=== PATIENT | male | born 1975 | race Caucasian/White ===

== ENCOUNTER 2022-07-17 12:56 | Observation (INO) ==
--- NOTE | 2022-07-17 13:38 | Emergency Department Note ---
Impression & Plan Afib, Chest pain ED Provider Note NAME: ROBEL BELLE AGE: 47 SEX: M : 1975 ARRIVES VIA: Walk-In INFORMANT: Patient ED PROVIDER(S): Wagner Diaz DO CHIEF COMPLAINT: Afib HPI: Patient is a 47-year-old male who had previous gastric bypass and previous diabetic which has now resolved with gastric bypass who had surgery at [facility]. They note he flipped into A. fib during the surgery. He is rate controlled. He was only given propofol. He denies any headache or change in vision. He feels a little groggy from the anesthesia. No chest pain or shortness of breath. No belly pain, nausea, vomiting, or diarrhea. No dysuria, urgency, or frequency. No other exacerbating or remitting factors. He notes he is very active. No heart disease. ROS: See above HPI for pertinent positives & negatives. A total of 10 systems reviewed and were otherwise negative. PAST MEDICAL HISTORY:See Below PAST SURGICAL HISTORY:See Below FAMILY HISTORY:See Below SOCIAL HISTORY:See Below HOME MEDICATIONS:See Below ALLERGIES:See Below VITALS:See Below PHYSICAL EXAMINATION: GENERAL: Sitting up in bed, alert, well appearing, well nourished, no distress, non-toxic EYE EXAM: normal conjunctiva. OROPHARYNX: no exudate, no erythema, lips, buccal mucosa, and tongue normal and mucous membranes are moist NECK: supple, no nuchal rigidity, no adenopathy, non-tender LUNGS: Clear to auscultation. Normal chest wall mechanics HEART: Irregular regular, S1 normal and S2 normal ABDOMEN: abdomen soft, non-tender, normo-active bowel sounds, no masses, no rebound or guarding. BACK: Back is symmetrical on inspection and there is no deformity, no midline tenderness, no CVA tenderness. SKIN: no rashes and no bruising UPPER EXTREMITIES: upper extremities are grossly normal. LOWER EXTREMITIES: No pitting edema. NEURO EXAM: Normal sensorium, cranial nerves II-XII grossly intact, normal speech, no gross weakness of arms, no gross weakness of legs. MEDICAL DECISION MAKING: Patient is a 47-year-old male referred in by [facility] following having right. IV was established blood work was obtained. He was found to be in A. fib. Labs show no significant leukocytosis or anemia. BMP along with LFTs bilirubin and lipase was unremarkable. Troponin was negative. Chest x-ray and EKG were remarkable for A. fib. Contacted Dr. Braeden Dean and just at this time patient started having chest pain. As he was having chest pain we gave him aspirin nitro and repeat the EKG. As he is having chest pain with new onset A. fib did discuss with the hospitalist for further evaluation and admission. Discussed with Dr. Pearson for further evaluation. Triage Nursing notes reviewed. Limited review of prior medical records performed Vital Signs: reviewed and remarkable for no significant abnormalities Differential diagnosis: Cardiac ischemia, aortic dissection, pulmonary embolism, pneumothorax, pneumonia, pericarditis, myocarditis, esophageal rupture, GERD, cholecystitis, pancreatitis, musculoskeletal, as well as other pathologies. ER treatment provided: See below Diagnostics interpreted by me: ECG: A. fib rate of 45 Normal axis No PVCs QTC 344 EKG #2 atrial flutter with a variable block rate of 46 No PVCs QTC 353 Cardiac Monitoring: An order was placed for continuous cardiac monitoring. The monitor shows a rate of 52 with sinus rhythm. Laboratory studies: As stated above and show below. Imaging studies: Chest x-ray unremarkable Consultation(s): As described above Procedures: none Critical Care: None Past Med/Surg History Social History Smoking Status: Never smoker Feels Safe at Home: Yes Allergies Allergies Allergy/AdvReac Type Severity Reaction Status Date / Time No Known Allergies Allergy Unverified 07/17/22 15:26 Home Meds Home Medications Medication Instructions Recorded Confirmed No Known Home Medications 07/17/22 07/17/22 Results & Data (ED) Vital Signs Vital Signs - 24 hr 07/17/22 12:58 07/17/22 13:25 07/17/22 14:56 Temperature 36.5 C Temperature Source Temporal Artery Scan Pulse Rate 56 L Pulse Rate [Apical] 54 L Pulse Rhythm [Apical] Irregular Pulse Strength [Apical] Normal Respiratory Rate 20 19 Respiratory Effort / Characteristics Non-Labored Spontaneous Non-Labored Respiratory Depth Normal Normal Respiratory Pattern Regular Regular Blood Pressure 123/85 Blood Pressure [Left Arm] 106/82 Blood Pressure Mean 97 Blood Pressure Mean [Left Arm] 90 Blood Pressure Position Sitting Blood Pressure Position [Left Arm] Lying Pulse Oximetry 100 99 98 Oxygen Delivery Method Room Air Room Air Room Air Sepsis Recent Fever Within 48 Hours No Sepsis New/Unexplained Change in Mental Status N/A Sepsis Action Taken by Nursing No Action Required Laboratory Data Result diagrams: 07/17/22 13:25 07/17/22 13:25 Lab Results 07/17/22 07/17/22 07/17/22 Range/Units 13:25 13:25 13:25 WBC 7.08 (4.8-10.8) K/ul RBC 4.83 (4.63-6.08) M/uL Hgb 14.6 (14.0-18.0) g/dl Hct 43.9 (40.1-51.0) % MCV 90.9 (80.0-100.0) fL MCH 30.2 (25.0-34.0) pg MCHC 33.3 (32.0-36.0) g/dL RDW Std Deviation 40.7 (36.4-46.3) fL RDW Coeff of Jorge 12.4 (11.5-14.5) % Plt Count 289 (130-400) K/uL MPV 9.9 (9.4-12.4) fL Immature Gran % (Auto) 0.1 % Neut % (Auto) 48.3 % Lymph % (Auto) 43.5 % Keith % (Auto) 6.2 % Eos % (Auto) 1.1 % Baso % (Auto) 0.8 % Neut # (Auto) 3.41 (1.4-6.5) K/uL Lymph # (Auto) 3.08 (1.2-3.4) K/uL Keith # (Auto) 0.44 (0.24-0.82) K/uL Eos # (Auto) 0.08 (0-0.50) K/uL Baso # (Auto) 0.06 (0-0.2) K/uL Immature Gran # (Auto) 0.01 (0.00-0.02) K/uL Sodium 139 (136-145) mmol/L Potassium 4.3 (3.5-5.1) mmol/L Chloride 105 (98-107) mmol/L Carbon Dioxide 29 (21-32) mmol/L Anion Gap 5 (3-11) BUN 16 (6-23) mg/dl Creatinine 0.75 (0.6-1.4) mg/dl Est Cr Clr Drug Dosing 148.7 ml/min Est GFR ( Amer) 128.4 ml/min Est GFR (Non-Af Amer) 110.8 ml/min BUN/Creatinine Ratio 21.3 H (10-20) Glucose 97 (70-99(Fasting)) mg/dl Calcium 8.7 (8.5-10.1) mg/dl Total Bilirubin 0.8 (0.2-1.0) mg/dl AST 19 (13-39) U/L ALT 15 (7-52) U/L Alkaline Phosphatase 48 (34-104) U/L Troponin I High Sens 5.2 4.9 (0-20) pg/ml Total Protein 7.2 (6.0-8.3) gm/dl Albumin 3.9 (3.4-5.0) gm/dl Globulin 3.3 (2.5-4.0) gm/dl Albumin/Globulin Ratio 1.2 (0.9-2) Lipase 31 (11-82) U/L Administered Medications Discontinued Medications Aspirin (Aspirin Chew 324 Mg) 324 mg PO NOW STA Stop: 07/17/22 14:41 Last Admin: 07/17/22 15:01 Dose: 324 mg Documented By: RSNella Nitroglycerin (Nitroglycerin Sl 0.4 Mg/Tab Tab) 0.4 mg SL NOW STA Stop: 07/17/22 14:41 Last Admin: 07/17/22 15:01 Dose: 0.4 mg Documented By: RSL Imaging Data Radiologist's Impression: Chest X-Ray 07/17/22 13:02 SINGLE VIEW CHEST CLINICAL HISTORY: Atypical chest pain. FINDINGS: An AP, portable, upright chest radiograph is obtained. No prior studies are available for comparison at the time of dictation. The cardiomediastinal silhouette is unremarkable. The lungs and pleural spaces are clear noting bibasilar atelectasis. No pneumothorax is seen. There is chronic posttraumatic deformity of the right clavicle. IMPRESSION: No active disease in the chest. ACT 112: Negative or not required by law. Electronically signed by: Adi Arguelles M.D. 07/17/2022 2:05 PM Discharge Plan Visit Data Chief Complaint: Cardiac Assessment Stated Complaint: A FIB. POST OP ED Provider: Wagner Diaz Discharge Problem: Afib, Chest pain Forms Stand Alone Forms: My [facility] GFS IT Prescriptions Prescriptions: No Action No Known Home Medications Referrals Referrals: PCP,NO [Physician] -
[2022-07-17 13:56] LABS: Basophils # (auto) 0.06 K/uL (0-0.2); Basophils % (auto) 0.8 %; Eosinophils # (auto) 0.08 K/uL (0-0.50); Eosinophils % (auto) 1.1 %; Hematocrit (blood only) 43.9 % (40.1-51.0); Hemoglobin 14.6 g/dl (14.0-18.0); Immature Granulocytes # (auto) 0.01 K/uL (0.00-0.02); Immature Granulocytes % (auto) 0.1 %; Lymphocytes # (auto) 3.08 K/uL (1.2-3.4); Lymphocytes % (auto) 43.5 %; Mean Corpuscular Hemoglobin 30.2 pg (25.0-34.0); Mean Corpuscular Hgb Conc 33.3 g/dL (32.0-36.0); Mean Corpuscular Volume 90.9 fL (80.0-100.0); Mean Platelet Volume 9.9 fL (9.4-12.4); Monocytes # (auto) 0.44 K/uL (0.24-0.82); Monocytes % (auto) 6.2 %; Neutrophils # (auto) 3.41 K/uL (1.4-6.5); Neutrophils % (auto) 48.3 %; Platelet Count 289 K/uL (130-400); RDW Coefficient of Variation 12.4 % (11.5-14.5); RDW Standard Deviation 40.7 fL (36.4-46.3); Red Blood Count 4.83 M/uL (4.63-6.08); White Blood Count 7.08 K/ul (4.8-10.8)
--- NOTE | 2022-07-17 14:06 | XRay Report ---
SINGLE VIEW CHEST CLINICAL HISTORY: Atypical chest pain. FINDINGS: An AP, portable, upright chest radiograph is obtained. No prior studies are available for c omparison at the time of dictation. The cardiomediastinal silhouette is unremarkable. The lungs and p leural spaces are clear noting bibasilar atelectasis. No pneumothorax is seen. There is chronic postt raumatic deformity of the right clavicle. IMPRESSION: No active disease in the chest. ACT 112: Negative or not required by law. Electronically signed by: Adi Arguelles M.D. 07/17/2022 2:05 PM
--- NOTE | 2022-07-17 14:14 | Electrocardiogram Report ---
Test Reason : Blood Pressure : / mmHG Vent. Rate : 050 BPM Atrial Rate : 288 BPM P-R Int : 000 ms QRS Dur : 086 ms QT Int : 404 ms P-R-T Axes : 000 044 031 degrees QTc Int : 368 ms Atrial fibrillation with slow ventricular response Abnormal ECG No previous ECGs available Confirmed by Og Gross ([id number]) on 07/17/2022 2:13:41 PM Referred By: REFERRED SELF Confirmed By:Gustavo Gross
[2022-07-17 14:17] LABS: Albumin Globulin Ratio 1.2 (0.9-2); Albumin Level 3.9 gm/dl (3.4-5.0); BUN Creatinine Ratio 21.3 (10-20); Bilirubin,Total 0.8 mg/dl (0.2-1.0); Calcium 8.7 mg/dl (8.5-10.1); Creatinine Clr Calc Pharmacy 148.7 ml/min; Est GFR (African American) 128.4 ml/min; Est GFR (Non-African American) 110.8 ml/min; Globulin 3.3 gm/dl (2.5-4.0); Potassium 4.3 mmol/L (3.5-5.1); Total Protein 7.2 gm/dl (6.0-8.3)
[2022-07-17 14:23] LABS: Troponin I High Sensitivity 5.2 pg/ml (0-20)
[2022-07-17] MEDS ORDERED: NITROGLYCERIN SL 0.4 MG/TAB TAB SL STA (14:40)
[2022-07-17] MEDS ORDERED: ASPIRIN CHEW 324 MG PO STA (14:40)
--- NOTE | 2022-07-17 15:20 | History & Physical Report ---
Date of Service July 17, 2022 Assessment & Plan (1) Afib: Plan: Yordan is a 47-year-old male with a past medical history of diabetes resolved following gastric sleeve placement in [place] 2 years ago who presents with A. fib following a digital cyst excision by [facility] [place]. fib EKG: A. fib, rate controlled on admission [id number] of 0, likely less than 24 hours of symptoms. Anticoagulation deferred. Case was reviewed with cardiology who recommended overnight observation and cardiac work-up Troponins trended Echo pending No history of COPD, tobacco use, alcohol use.? Provoked in the setting of high stress, patient both with surgery prior and with his mother passing 2 weeks prior Discussed with cardiology. High rate of spontaneous conversion, defer anticoagulation at this time. If still in A. fib in the morning can reassess for conversion with flecainide No history of CHRISTEL, but patient with significant weight loss following sleeve Gastric sleeve Does not take any medications for this further, doing well. Type 2 diabetes, resolved Normalized following gastric sleeve BMP daily Defer insulin at this time DVT prophylaxis: Lovenox Diet: Heart healthy Disposition: Medical telemetry for cardiac eval CODE STATUS: Full code (2) Chest pain: (3) Digital mucinous cyst of finger of right hand: History of Present Illness Primary Care Provider: Bruce Maldonado DO Yordan is a 47-year-old male with a history of gastric bypass and DM resolved following bypass who was seen at [facility] and following finger surgery developed A. fib with rate control. Was initially going to be discharged home after rate controlled, however developed chest pain which was discussed with cardiology and has been recommended for cardiac eval overnight. Seen at bedside. Recieved oxycodone 5mg, ibuprofen 600mg, apap 500mg, no chronic medications. Had a R Middle 3rd digit cyst excision with Dr. Navas at [facility] under profol and not sure about a nerve block. Chest pain free at assessment after nitro No shortness of breath recently or with his chest pain Referee for football/softball/basketball and landscapes and no SoB/CP during high activity. Gastric sleeve March 17 2.[address] at [place] [facility] Lyly Mayogn well since, took PPI for 6 month then did OK after Rare social alcohol use.No tobacco use. No MM, no vaping No HTN, No BP Fully Vaccinated No Stroke CVA Past DM cured with sleeve No fhx of heart disease, lung disease, thyroid disease No recent illness. No nausea, vomiting, diarrhea, constipation. Medical History: Reviewed Medications: Reviewed Surgical History: Reviewed Allergies: Reviewed Social History: No tobacco/alcohol use Code Status: Full code Allergies Allergy/AdvReac Type Severity Reaction Status Date / Time No Known Allergies Allergy Unverified 07/17/22 15:26 Home Medications Medication Instructions Recorded Confirmed Type No Known Home Medications 07/17/22 07/17/22 History Past Med/Surg History Social History Smoking Status: Never smoker Feels Safe at Home: Yes Review of Systems Review of Systems: All systems reviewed & are unremarkable except as noted in HPI & below Physical Exam Physical Exam: General: A&Ox3. NAD. Cooperative. HEENT: Atraumatic, normocephalic. Vision/hearing intact Pulm: CTAB A&P. -wheezes, -rales, -rhonchi. Symmetrical chest rise. No increase in work of breathing. No respiratory distress. Cardiac:irir, -mrg. Radial pulses intact and symmetrical. Abdominal: Nontender, nondistended, soft. BS present. Extremities: No edema, moving all extremities equally, walks without difficulty Results & Data Results & Data ([facility]) Vital Signs (Past 12 Hours) Vital Signs Temp Pulse Pulse Resp BP BP Pulse Ox 07/17/22 14:56 54 L 19 106/82 98 07/17/22 13:25 99 07/17/22 12:58 36.5 C 56 L 20 123/85 100 O2 Del Method 07/17/22 14:56 Room Air 07/17/22 13:25 Room Air 07/17/22 12:58 Room Air PG Care Time/CCT Total # of Minutes Spent Total Time Spent with Patient: Total time spent is greater than 50% in coordination of care (as documented) at patient's floor/unit and/or counseling patient: Coding Level of Care Code INT OBSERVATION CARE 50M LVL 2 Diagnoses Afib I48.91 Chest pain R07.9 Digital mucinous cyst of finger of right hand M67.441
[2022-07-17] MEDS ORDERED: NITROGLYCERIN SL 0.4 MG/TAB TAB SL PRN (17:25)
[2022-07-17] MEDS ORDERED: MoRPHine SULFATE 2 MG/ML CARP IV PRN (17:25)
--- NOTE | 2022-07-17 19:40 | Electrocardiogram Report ---
Test Reason : Blood Pressure : / mmHG Vent. Rate : 046 BPM Atrial Rate : 060 BPM P-R Int : 000 ms QRS Dur : 088 ms QT Int : 404 ms P-R-T Axes : 258 039 031 degrees QTc Int : 353 ms Atrial fibrillation with slow ventricualr response Abnormal ECG Confirmed by Og Gross ([id number]) on 07/17/2022 7:40:15 PM Referred By: REFERRED SELF Confirmed By:Gustavo Gross
[2022-07-18 06:27] LABS: Basophils # (auto) 0.07 K/uL (0-0.2); Basophils % (auto) 0.9 %; Eosinophils # (auto) 0.17 K/uL (0-0.50); Eosinophils % (auto) 2.2 %; Hematocrit (blood only) 42.1 % (40.1-51.0); Hemoglobin 14.4 g/dl (14.0-18.0); Immature Granulocytes # (auto) 0.01 K/uL (0.00-0.02); Immature Granulocytes % (auto) 0.1 %; Lymphocytes # (auto) 2.63 K/uL (1.2-3.4); Lymphocytes % (auto) 34.4 %; Mean Corpuscular Hemoglobin 30.1 pg (25.0-34.0); Mean Corpuscular Hgb Conc 34.2 g/dL (32.0-36.0); Mean Corpuscular Volume 87.9 fL (80.0-100.0); Mean Platelet Volume 10.2 fL (9.4-12.4); Monocytes # (auto) 0.51 K/uL (0.24-0.82); Monocytes % (auto) 6.7 %; Neutrophils # (auto) 4.26 K/uL (1.4-6.5); Neutrophils % (auto) 55.7 %; Platelet Count 283 K/uL (130-400); RDW Coefficient of Variation 12.2 % (11.5-14.5); RDW Standard Deviation 39.2 fL (36.4-46.3); Red Blood Count 4.79 M/uL (4.63-6.08); White Blood Count 7.65 K/ul (4.8-10.8)
[2022-07-18 07:15] LABS: Troponin I High Sensitivity 7.9 pg/ml (0-20)
[2022-07-18 07:18] LABS: Calcium 8.8 mg/dl (8.5-10.1); Creatinine Clr Calc Pharmacy 148.7 ml/min; Est GFR (African American) 128.4 ml/min; Est GFR (Non-African American) 110.8 ml/min; Potassium 3.8 mmol/L (3.5-5.1)
[2022-07-18] MEDS ORDERED: ENOXAPARIN INJ 40 MG/0.4 ML SYR SQ SCH (09:00)
--- NOTE | 2022-07-18 10:03 | XCELERA ---
[id number]
--- NOTE | 2022-07-18 12:11 | Cardiology Consultation ---
Date of Consultation July 18, 2022 Assessment & Plan (1) Afib: (2) Mitral regurgitation: (3) Bradycardia: Plan 1. Atrial fibrillation: I think this is of unclear duration. The verbal report suggested that this be can intraoperatively, but there is no record of sinus rhythm in his chart. In fact, his heart rate did not appear to change throughout the operation. I suspect he has been in atrial fibrillation for an extended period of time. He has no current symptoms and likely would not have noticed any change in his rhythm in the recent past. He generally does not see doctors. There does not appear to have been any documentation of his heart rate or heart rhythm in some time. As result, this is likely persistent atrial fibrillation and he is less likely to convert spontaneously in a short time frame. We will likely need to perform some cardioversion in the future. He will require systemic anticoagulation leading up to a cardioversion. Given his renal function he appears to be a good candidate for Xarelto 20 mg daily. I would recommend starting this medication and arranging for follow-up in the clinic. The etiology of his atrial fibrillation is unclear. He does have some valvular heart disease and some associated left atrial enlargement. He did not endorse symptoms consistent with obstructive sleep apnea. No diagnosis of hypertension. He did not endorse symptoms of significant alcohol use. 2. Mitral regurgitation: He has moderate mitral regurgitation. This appears to be functional and not associated with significant valve problem. This has resulted in some left atrial enlargement. Not severe. No symptoms. Will monitor this over time. 3. Bradycardia: I am concerned that he has a relatively slow heart rate. This would be unusual for a young person in atrial fibrillation. The QRS complex is normal there does not appear to be any intraventricular conduction disease. Given the presence of atrial fibrillation with slow ventricular response in what appears to be in otherwise healthy individual I would be concerned about an i nfiltrative process such as amyloidosis or sarcoid. He is not appear to be symptomatic with respect to his slow heart rate. May have some difficulty maintaining sinus rhythm if he has significant conduction disease. I think he is stable for discharge. I think this is likely a longstanding problem which is not produced any symptoms today. I think we can start him on the anticoagulation as noted above in happen follow-up in the clinic for additional testing and cardioversion. History of Present Illness Reason for Consultation: Atrial fibrillation Requesting Physician: Roberta Attending Physician: Xavi Davis MD History of Present Illness The patient is a 47-year-old gentleman without a known history of cardiac disease who was at an outpatient surgical center yesterday when he was noted to have atrial fibrillation. The patient was sent to the emergency room without point for evaluation and admitted overnight for observation. The patient had presented for a cyst on his right hand. He was noted to have atrial fibrillation intraoperatively. He did not report other symptoms. Hemodynamically he appears to be stable the surgery was completed without complication. The patient states in general he feels well. He has been unaware of any palpitations. He denies significant dizziness or lightheadedness. He works vigorously as a sports rep for [employer] and can perform other physical activity without limitation. He does not report limiting dyspnea. No symptoms of exertional chest discomfort. He cannot recall suffering an episode of syncope. He does not have any home monitoring devices and has been unaware of any change in his heart rate recently. He generally avoids seeing a doctor. Does report undergoing evaluation 3 years ago leading up to a gastric bypass surgery. States that he underwent cardiac stress testing at that time it was not aware of any abnormalities. Currently he is feeling well. Again, he denies palpitations. He states that he did have a very brief episode of left-sided chest discomfort yesterday in the emergency room. This was minor and transient in nature. No recurrence. Allergies Allergy/AdvReac Type Severity Reaction Status Date / Time No Known Allergies Allergy Unverified 07/17/22 15:26 Home Medications Medication Instructions Recorded Confirmed Type No Known Home Medications 07/17/22 07/17/22 History Patient History Social History Smoking Status: Never smoker Hx Substance Use: No Preferred Language: Kazakh Communication Ability: Effective Turf Manager Required: No Beliefs That Will Affect Care: None Other Information That Helps Us Care for You: No Feels Safe at Home: Yes Review of Systems Review of Systems: Per HPI Physical Exam Physical Exam: The patient is alert and oriented. Mood and affect appeared normal. He answered all questions appropriately. HEENT: Pupils are equal and reactive to light and accommodation. Extraocular movements are intact. The sclerae are anicteric. Neuro: Cranial nerves intact Neck: Patient's neck is supple. He has palpable carotid pulses bilaterally without bruits on auscultation. There is no evidence of jugular venous distention. The thyroid is not enlarged. Lungs: Clear to auscultation bilaterally. He has good air movement without use of accessory muscles. No rales wheezes or rhonchi. Cardiac: Heart demonstrates an irregular rate and rhythm. Normal S1 and S2. No murmurs on examination. Pulses: The patient has palpable radial pulses bilaterally that are equal in intensity Extremities: There was no evidence of hypoperfusion. There is no cyanosis or clubbing. There is no edema. Skin: I did not appreciate any rashes on examination today. Small abrasion on left tibial area Results & Data ([facility]) Vital Signs (Past 12 Hours) Vital Signs Temp Pulse Pulse Pulse Resp BP Pulse Ox 07/18/22 11:56 36.3 C L 58 L 16 112/70 99 07/18/22 08:29 36.4 C L 51 L 16 129/85 98 07/18/22 04:04 56 L 07/18/22 04:20 36.6 C 61 18 108/71 97 07/18/22 03:28 73 16 112/73 98 O2 Del Method 07/18/22 11:56 Room Air 07/18/22 08:29 Room Air 07/18/22 04:04 07/18/22 04:20 Room Air 07/18/22 03:28 Room Air Laboratory Results Abnormal Lab Results 07/17/22 07/17/22 07/17/22 13:25 13:25 13:25 WBC 7.08 RBC 4.83 Hgb 14.6 Hct 43.9 MCV 90.9 MCH 30.2 MCHC 33.3 RDW Std Deviation 40.7 RDW Coeff of Jorge 12.4 Plt Count 289 MPV 9.9 Immature Gran % (Auto) 0.1 Neut % (Auto) 48.3 Lymph % (Auto) 43.5 Meriwether % (Auto) 6.2 Eos % (Auto) 1.1 Baso % (Auto) 0.8 Neut # (Auto) 3.41 Lymph # (Auto) 3.08 Meriwether # (Auto) 0.44 Eos # (Auto) 0.08 Baso # (Auto) 0.06 Immature Gran # (Auto) 0.01 Sodium 139 Potassium 4.3 Chloride 105 Carbon Dioxide 29 Anion Gap 5 BUN 16 Creatinine 0.75 Est Cr Clr Drug Dosing 148.7 Est GFR ( Amer) 128.4 Est GFR (Non-Af Amer) 110.8 BUN/Creatinine Ratio 21.3 H Glucose 97 Calcium 8.7 Total Bilirubin 0.8 AST 19 ALT 15 Alkaline Phosphatase 48 Troponin I High Sens 5.2 4.9 Total Protein 7.2 Albumin 3.9 Globulin 3.3 Albumin/Globulin Ratio 1.2 Lipase 31 SARS-CoV-2, RNA, NAAT 07/17/22 07/17/22 07/17/22 16:00 18:07 23:21 WBC RBC Hgb Hct MCV MCH MCHC RDW Std Deviation RDW Coeff of Jorge Plt Count MPV Immature Gran % (Auto) Neut % (Auto) Lymph % (Auto) Meriwether % (Auto) Eos % (Auto) Baso % (Auto) Neut # (Auto) Lymph # (Auto) Meriwether # (Auto) Eos # (Auto) Baso # (Auto) Immature Gran # (Auto) Sodium Potassium Chloride Carbon Dioxide Anion Gap BUN Creatinine Est Cr Clr Drug Dosing Est GFR ( Amer) Est GFR (Non-Af Amer) BUN/Creatinine Ratio Glucose Calcium Total Bilirubin AST ALT Alkaline Phosphatase Troponin I High Sens 5.4 7.6 Total Protein Albumin Globulin Albumin/Globulin Ratio Lipase SARS-CoV-2, RNA, NAAT NEGATIVE 07/18/22 07/18/22 07/18/22 05:42 05:42 05:42 WBC 7.65 RBC 4.79 Hgb 14.4 Hct 42.1 MCV 87.9 MCH 30.1 MCHC 34.2 RDW Std Deviation 39.2 RDW Coeff of Jorge 12.2 Plt Count 283 MPV 10.2 Immature Gran % (Auto) 0.1 Neut % (Auto) 55.7 Lymph % (Auto) 34.4 Meriwether % (Auto) 6.7 Eos % (Auto) 2.2 Baso % (Auto) 0.9 Neut # (Auto) 4.26 Lymph # (Auto) 2.63 Meriwether # (Auto) 0.51 Eos # (Auto) 0.17 Baso # (Auto) 0.07 Immature Gran # (Auto) 0.01 Sodium Cancelled 139 Potassium Cancelled 3.8 Chloride Cancelled 107 Carbon Dioxide Cancelled 25 Anion Gap Cancelled 7 BUN Cancelled 18 Creatinine Cancelled 0.75 Est Cr Clr Drug Dosing Cancelled 148.7 Est GFR ( Amer) Cancelled 128.4 Est GFR (Non-Af Amer) Cancelled 110.8 BUN/Creatinine Ratio Cancelled 24.0 H Glucose Cancelled 100 H Calcium Cancelled 8.8 Total Bilirubin AST ALT Alkaline Phosphatase Troponin I High Sens 7.9 Total Protein Albumin Globulin Albumin/Globulin Ratio Lipase SARS-CoV-2, RNA, NAAT Diagnostic Findings Chest x-ray obtained the time admission not reveal any acute cardiopulmonary process Echocardiogram performed today revealed preserved LV systolic function with ejection fraction 55-60%. Biatrial enlargement. Moderate mitral regurgitation. I reviewed the available records from [facility]. This included telemetry strips, the anesthetic record and EKG. ECG Additional Comments: EKG demonstrated atrial fibrillation with slow ventricular response. No other significant abnormalities PG Care Time/CCT Total # of Minutes Spent Total Time Spent with Patient: Total time spent is greater than 50% in coordination of care (as documented) at patient's floor/unit and/or counseling patient: Coding Level of Care Code 04300 Office/OBS Consult Lvl 5 Diagnoses Afib I48.91 Mitral regurgitation I34.0 Bradycardia R00.1
[2022-07-18] MEDS ORDERED: traMADol HCL 50 MG TABLET PO STA (13:24)
[2022-07-18 14:14] LABS: Lyme Ab IgG w/WB Rflx Negative (Negative); Lyme Ab IgM w/WB Rflx Negative (Negative)
--- NOTE | 2022-07-18 17:46 | Discharge Summary ---
Date of Service July 18, 2022 Admission HPI Per Admitting Provider Yordan is a 47-year-old male with a history of gastric bypass and DM resolved following bypass who was seen at [facility] and following finger surgery developed A. fib with rate control. Was initially going to be discharged home after rate controlled, however developed chest pain which was discussed with cardiology and has been recommended for cardiac eval overnight. Seen at bedside. Recieved oxycodone 5mg, ibuprofen 600mg, apap 500mg, no chronic medications. Had a R Middle 3rd digit cyst excision with Dr. Navas at [facility] under profol and not sure about a nerve block. Chest pain free at assessment after nitro No shortness of breath recently or with his chest pain Referee for football/softball/basketball and landscapes and no SoB/CP during high activity. Gastric sleeve March 17 2.[address] at [place] Dr Lyly Mayogn well since, took PPI for 6 month then did OK after Rare social alcohol use.No tobacco use. No MM, no vaping No HTN, No BP Fully Vaccinated No Stroke CVA Past DM cured with sleeve No fhx of heart disease, lung disease, thyroid disease No recent illness. No nausea, vomiting, diarrhea, constipation. Medical History: Reviewed Medications: Reviewed Surgical History: Reviewed Allergies: Reviewed Social History: No tobacco/alcohol use Code Status: Full code Principal Diagnosis Atrial fibrillation of unknown duration Discharge Data Allergies Allergy/AdvReac Type Severity Reaction Status Date / Time No Known Allergies Allergy Unverified 07/17/22 15:26 Consultations 07/17/22 14:40 ED Decision to Admit Stat 07/18/22 08:59 Consult Cardiology Routine Hospital Course (1) Afib: Yordan is a 47-year-old male with a past medical history of diabetes resolved following gastric sleeve placement in [place] 2 years ago who presents with A. fib following a digital cyst excision by [facility] New A. fib EKG: A. fib, rate controlled on admission-on hospital day 2 he remained at the heart rate in the 50s consistently. He was walking around the porter most day, asymptomatic and impatient to be discharged. [id number] of 0, likely less than 24 hours of symptoms. Anticoagulation deferred. Case was reviewed with cardiology who recommended overnight observation and cardiac work-up Troponins trended No history of COPD, tobacco use, alcohol use.? Provoked in the setting of high stress, patient both with surgery prior and with his mother passing 2 weeks prior CardiologyDt Ginny saw patient hospital day 2. He is very active, mows other peoples lawns, refreeze basketball and football. Never had palpitations/dizziness or presyncope. This the first time he has heard of atrial fibrillation. Echo has revealed some aortic insufficiency but no wall mesh motion abnormality. DR SAM was concerned about the patient's bradycardia and wonders if he has an underlying conduction defect.. Xarelto 20 mg daily is being started per cardiology recommendation. He will be seen by cardiology in 2 weeks to consider cardioversion. Type 2 diabetes, resolved Normalized following gastric sleeve (2) Chest pain: No evidence of acute coronary syndrome (3) Digital mucinous cyst of finger of right hand: Drained. I did not examine his finger under the dressing. Will keep appointment with orthopedics per plan Total Time Total Time Spent Total Time Spent (In Minutes): 45 Discharge Plan Discharge Items Patient Disposition: Home - Self-Care Reason For Visit: AFIB NEW Discharge Diagnosis: Atrial fibrillation unknown duration Activity: Resume your previous activity Non-emergency contact: Primary Care Provider Call non-emergency contact if: you have any medication questions Follow-up/Referrals: Bruce Maldonado DO [Primary Care Provider] - Diet: Regular Addtl Attending Provider Instructions: TSH normal 1.238 07/18 Lyme titre negative Pending Studies at Discharge: No Stand-Alone Forms: My [facility] [employer], Smoking Cessation Medications and DC Order Prescriptions: New Xarelto 20 mg tablet 20 mg PO DAILY Qty: 20 0RF Rx Instructions: must administer with evening meal Discharge Orders: Discharge Order (Routine); Ordered 07/18/22 Ordered By: Xavi Davis Admission Data Admit Date/Time: 07/17/22 15:21 Attending Provider: Xavi Davis Admit Provider: Manav Granados Primary Care Provider: Bruce Maldonado Other Providers: Manav Granados ; Max Perez ; Jarad Wade ; [place] ; Leonel Bean ; Tristan Iverson ; Jc Tran Jr ; Ney Connelly ; Belinda Herring ; Keisha Benitez ; Supa Brown ; Og Sam ; Alex Beal ; Bushra Mcdaniel ; Gabbie Salguero ; Norm Sears ; Chema Mo[place] ; Landry Apodaca ; Leonel Meade V. Coding Level of Care Code D/C DAY MANAGEMENT >30 MINS Diagnoses Afib I48.91 Chest pain R07.9 Digital mucinous cyst of finger of right hand M67.441
== END 2022-07-18 18:20 | disposition home or self-care (01) ==
LOC: EDSEX → EDINP 12:56 → ED 12:56 → SUATTDRO 15:21 → 2N 07-18 03:39